=== PATIENT | female | born 1950 | race Caucasian/White ===

== ENCOUNTER → 2020-12-17 | Outpatient (CLI) | payer MEDICARE ==
[~2020-12-17] MED LIST: ATORVASTATIN CA20 MG PO; CLOPIDOGREL75 MG PO; ECOTRIN81 MG PO; FISH OIL EC 1,1 EACH PO; KEFLEX CAP 250250 MG PO; LISINOPRIL5 MG PO; LOPRESSOR 25 MG25 MG PO; MAGNESIUM250 M1 PO; MULTIVITAMIN1 EACH PO; TURMERIC-TAMAR250 MG PO; VITAMIN D PO; VITAMIN D3 PO; VITAMIN E PO; VOLTAREN ARTHRI20 GM TP; XYZAL5 MG PO
== END ==
LOC: EXRD 12:33
DX: I65.23 Occlusion and stenosis of bilateral carotid arteries (principal)
CPT/HCPCS: 93880

== ENCOUNTER → 2020-12-18 | Outpatient (CLI) | payer MEDICARE | LOC: US 14:11 | DX: I73.9 Peripheral vascular disease, unspecified (principal) | CPT/HCPCS: 93925 ==

== ENCOUNTER → 2021-01-16 | Outpatient (CLI) | payer MEDICARE | LOC: CT 08:00 | DX: Z01.818 Encounter for other preprocedural examination (principal); I65.23 Occlusion and stenosis of bilateral carotid arteries; M47.812 Spondylosis without myelopathy or radiculopathy, cervical region; M48.02 Spinal stenosis, cervical region | CPT/HCPCS: ECHO; 36415; 70498; 82565; 93306; Q9967 ==

== ENCOUNTER → 2021-01-21 | Outpatient (CLI) | payer MEDICARE ==
[2021-01-21 10:35] LABS: HEMOGLOBIN 13.5 gm/dl (12.3-15.3); RED BLOOD COUNT 4.6 M/UL (4.00-5.10); WHITE BLOOD COUNT 7.6 K/UL (4.5-11.0)
[2021-01-21 10:52] LABS: BUN/CREATININE RATIO 20 (0-10)
== END ==
LOC: OPSV2 09:56
PROVIDERS: Surgery
DX: Z01.818 Encounter for other preprocedural examination (principal)
CPT/HCPCS: 36415; 71046; 80053; 81001; 85025; 85610; 85730; 93005

== ENCOUNTER 2021-01-22 07:30 | Inpatient (IN) | payer MEDICARE ==
[~2021-01-22] VITALS: Ht 165.1 cm; Wt 104.3 kg
[2021-01-27] MEDS ORDERED: LISINOPRIL5 MG PO (06:32)
[2021-01-27] MEDS ORDERED: ECOTRIN81 MG PO (06:32)
[2021-01-27] MEDS ORDERED: MAGNESIUM250 M1 PO (06:32)
[2021-01-27] MEDS ORDERED: TURMERIC-TAMAR250 MG PO (06:33)
[2021-01-27] MEDS ORDERED: MULTIVITAMIN1 EACH PO (06:34)
[2021-01-27] MEDS ORDERED: VITAMIN D3 PO (06:34)
[2021-01-27] MEDS ORDERED: VITAMIN D PO (06:34)
[2021-01-27] MEDS ORDERED: ATORVASTATIN CA20 MG PO (06:35)
[2021-01-28 05:53] LABS: HEMOGLOBIN 11.7 gm/dl (12.3-15.3); RED BLOOD COUNT 4.01 M/UL (4.00-5.10); WHITE BLOOD COUNT 13.4 K/UL (4.5-11.0)
[2021-01-28 06:06] LABS: BUN/CREATININE RATIO 28 (0-10)
[2021-01-28] MEDS ORDERED: CLOPIDOGREL75 MG PO (19:11)
[2021-01-28] MEDS ORDERED: LOPRESSOR 25 MG25 MG PO (19:11)
[2021-01-28] MEDS ORDERED: FISH OIL EC 1,1 EACH PO (19:11)
[2021-01-28] MEDS ORDERED: ATORVASTATIN CA20 MG PO (19:11)
== END 2021-01-28 19:34 | disposition home or self-care (01) | DRG 24 ==
LOC: OR 07:30 → EDSTATUS 07:30 → ZOBSOF 01-27 06:02 → CCU 01-27 12:02
PROVIDERS: ADMIT Surgery
PROC: 03CK0ZZ Extirpation of Matter from Right Internal Carotid Artery, Open Approach (ICD-10-PCS; principal; 2021-01-27 07:30)
DX: I65.21 Occlusion and stenosis of right carotid artery (principal); I10 Essential (primary) hypertension; E66.01 Morbid (severe) obesity due to excess calories; Z68.38 Body mass index [BMI] 38.0-38.9, adult; M19.90 Unspecified osteoarthritis, unspecified site; E78.5 Hyperlipidemia, unspecified; E11.9 Type 2 diabetes mellitus without complications; Z98.890 Other specified postprocedural states
CPT/HCPCS: 36415; 80048; 85027; 86850; 86900; 86901; J0360; J0690; J1580; J1644; J2001; J2370; J2405; J2704; J2710; J2720; J3010; J7040; J7050; J7120

== ENCOUNTER 2021-02-10 06:07 | Inpatient (IN) | payer MEDICARE ==
[~2021-02-10] VITALS: Ht 165.1 cm; Wt 109.1 kg
[~2021-02-10 06:07] MED LIST changes: -KEFLEX CAP 250250 MG PO; -VITAMIN E PO; -VOLTAREN ARTHRI20 GM TP; -XYZAL5 MG PO
[2021-02-10 06:48] LABS: HEMOGLOBIN 12.8 gm/dl (12.3-15.3); RED BLOOD COUNT 4.25 M/UL (4.00-5.10); WHITE BLOOD COUNT 8.1 K/UL (4.5-11.0)
[2021-02-10] MEDS ORDERED: VITAMIN E PO (07:00)
[2021-02-10] MEDS ORDERED: XYZAL5 MG PO (07:01)
[2021-02-10] MEDS ORDERED: VOLTAREN ARTHRI20 GM TP (07:01)
[2021-02-10 07:09] LABS: BUN/CREATININE RATIO 20 (0-10)
[2021-02-10 14:27] LABS: BUN/CREATININE RATIO 25 (0-10)
[2021-02-11 06:25] LABS: HEMOGLOBIN 10.1 gm/dl (12.3-15.3)
[2021-02-11 06:28] LABS: RED BLOOD COUNT 3.44 M/UL (4.00-5.10); WHITE BLOOD COUNT 10.2 K/UL (4.5-11.0)
[2021-02-11 06:33] LABS: BUN/CREATININE RATIO 21 (0-10)
[2021-02-13] MEDS ORDERED: LOPRESSOR 25 MG25 MG PO (10:42)
[2021-02-13 11:56] LABS: BUN/CREATININE RATIO 20 (0-10)
== END 2021-02-13 12:23 | disposition home or self-care (01) | DRG 38 ==
LOC: ZOBSOF 06:07 → CCU 06:07
PROVIDERS: Surgery; ADMIT Internal Medicine Infectious Disease
PROC: 03CN0ZZ Extirpation of Matter from Left External Carotid Artery, Open Approach (ICD-10-PCS; 2021-02-10)
PROC: 03CL0ZZ Extirpation of Matter from Left Internal Carotid Artery, Open Approach (ICD-10-PCS; 2021-02-10)
PROC: 03CJ0ZZ Extirpation of Matter from Left Common Carotid Artery, Open Approach (ICD-10-PCS; principal; 2021-02-10 07:30)
DX: I65.22 Occlusion and stenosis of left carotid artery (principal); Z68.41 Body mass index [BMI] 40.0-44.9, adult; I10 Essential (primary) hypertension; E78.5 Hyperlipidemia, unspecified; E66.9 Obesity, unspecified; D64.9 Anemia, unspecified; E55.9 Vitamin D deficiency, unspecified; I48.91 Unspecified atrial fibrillation; J30.2 Other seasonal allergic rhinitis; I49.3 Ventricular premature depolarization; Z98.51 Tubal ligation status; Z87.442 Personal history of urinary calculi; Z90.49 Acquired absence of other specified parts of digestive tract; Z82.3 Family history of stroke; Z82.49 Family history of ischemic heart disease and other diseases of the circulatory system; Z90.710 Acquired absence of both cervix and uterus
CPT/HCPCS: 36415; 71045; 80048; 80053; 82550; 82553; 83735; 84439; 84443; 84484; 85014; 85018; 85025; 85027; 85610; 85730; 86850; 86900; 86901; 93005; J0690; J1580; J1644; J2001; J2270; J2405; J2704; J2720; J3010; J7040; J7050; J7120

== ENCOUNTER 2021-02-21 12:24 | Emergency (ER) | payer MEDICARE ==
[~2021-02-21 12:24] MED LIST changes: +VITAMIN E PO; +VOLTAREN ARTHRI20 GM TP; +XYZAL5 MG PO
[2021-02-21] MEDS ORDERED: KEFLEX CAP 250250 MG PO (14:27)
== END 2021-02-21 14:26 | disposition home or self-care (01) ==
LOC: ER1 12:24
DX: I97.620 Postprocedural hemorrhage of a circulatory system organ or structure following other procedure (principal); I10 Essential (primary) hypertension; I48.91 Unspecified atrial fibrillation; Z79.899 Other long term (current) drug therapy; Z79.01 Long term (current) use of anticoagulants; Z79.02 Long term (current) use of antithrombotics/antiplatelets
CPT/HCPCS: 99283

== ENCOUNTER → 2021-04-06 | Outpatient (CLI) | payer MEDICARE ==
[~2021-04-06] MED LIST changes: +KEFLEX CAP 250250 MG PO
== END ==
LOC: EXRD 13:28 → HEART 5 14:00
DX: I48.91 Unspecified atrial fibrillation (principal); I82.409 Acute embolism and thrombosis of unspecified deep veins of unspecified lower extremity
CPT/HCPCS: 93971

== ENCOUNTER → 2021-08-13 | Outpatient (CLI) | payer MEDICARE | LOC: KOH-I 09:39 | DX: Z01.818 Encounter for other preprocedural examination (principal) | CPT/HCPCS: 71046 ==

== ENCOUNTER → 2021-08-17 | Outpatient (CLI) | payer MEDICARE | LOC: HEART 5 09:15 | DX: Z01.818 Encounter for other preprocedural examination (principal); I65.29 Occlusion and stenosis of unspecified carotid artery; I48.0 Paroxysmal atrial fibrillation; I47.2 Ventricular tachycardia; R94.39 Abnormal result of other cardiovascular function study | CPT/HCPCS: 78452; A9502; J2785 ==

== ENCOUNTER → 2022-04-29 | Outpatient (CLI) | payer MEDICARE | LOC: CT 09:50 | DX: I73.9 Peripheral vascular disease, unspecified (principal); I77.1 Stricture of artery; K86.9 Disease of pancreas, unspecified | CPT/HCPCS: 75635; Q9967 ==